=== PATIENT | female | born 1980 | race American Indian/Alaskan Native ===

== ENCOUNTER 2016-12-25 11:24 | Emergency (ER) | payer OTHER ==
[2016-12-25 11:43] VITALS: BP 129/86
[2016-12-25] MEDS ORDERED: MOTRIN PO ONE (13:18)
--- NOTE | 2016-12-25 13:23 | Emergency Department Report ---
HPI - General Chief Complaint: Extremity Injury, Lower - HPI HPI: 36-year-old female comes in with complaint of right foot swelling after wearing new shoes while on vacation in [place] for 4 days. Patient recently returned from [place] states her right foot remained swollen. She reports that the swelling started towards the end of her trip. Does admit that the swelling is decreased in the morning. She does report she had a blister on the right great toe heel aspect. Does have a history of hammertoe correction to the same foot back in 07/28/2016. Patient admits that she has not taken any pain medicine for the discomfort. She does have a history of diabetes and hypertension. She reports that she is on metformin 500 mg by mouth daily as well as lisinopril 10 mg by mouth daily. ED Past Medical Hx - Past Medical History Previous Medical History?: Yes Hx Diabetes: Yes Additional medical history: right foot pain - Surgical History Past Surgical History?: Yes Additional Surgical History: Right foot hammer toe correction - Social History Smoking Status: Never Smoker Substance Use Type: Prescribed - Medications Home Medications: Home Medications Medication Instructions Recorded Confirmed Last Taken Type Clindamycin [Clindamycin CAP] 300 mg PO Q8H #30 cap 02/16/16 Unknown Rx Ibuprofen [Motrin 800 MG tab] 800 mg PO ONCE #90 tablet 12/25/16 Unknown Rx ED Review of Systems ROS: Stated complaint: SWOLLEN RT FOOT Other details as noted in HPI Constitutional: denies: chills, fever Musculoskeletal: joint swelling, arthralgia Skin: change in color (chemotic blister right medial great toe) Physical Exam - Physical Exam Vital Signs: Vital Signs 12/25/16 11:38 Temperature 97.9 F Pulse Rate 81 Respiratory 20 Rate Blood Pressure 129/86 O2 Sat by Pulse 99 Oximetry Physical Exam: GENERAL: Alert and oriented x3, no apparent distress, Normal Gait, atraumatic. HEAD: Head is normocephalic and a-traumatic. EXTREMITIES/MUSCULOSKELETAL: No cyanosis, clubbing, rash, lesions or edema. Full ROM bilaterally. UE/LE Pulses 2+ bilaterally. LE and UE 5+ strength bilaterally/ right foot swelling on the dorsum aspect, ecchymotic blister to the right medial great toe. Right foot feels warm non-tender to palpate. NEUROLOGIC: No focal Deficit, Cranial nerves II through XII are grossly intact. No loss of sensation, No facial droop, PSYCHIATRIC: Mood is congruent with affect, denies suicidal or homicidal ideations. SKIN: Warm and dry, No lesions, ED Course Vital Signs 12/25/16 11:38 Temperature 97.9 F Pulse Rate 81 Respiratory 20 Rate Blood Pressure 129/86 O2 Sat by Pulse 99 Oximetry ED Medical Decision Making - Radiology Data Radiology results: report reviewed, image reviewed Fluoro Time In Minutes: AP and lateral right foot: There is diffuse soft tissue swelling. No ulceration noted. There appears to be a fracture through the mid navicular bone with inferior displacement of a portion of the bone and fragmentation of the superior portion. This represents an interval change since her prior study in March 2016. The bony structures otherwise appear generally intact. Impression: Generalized swelling and navicular fracture. Transcribed By: RADHA Dictated By: LUIS EDUARDO COLEMAN MD Electronically Authenticated By: LUIS EDUARDO COLEMAN MD Signed Date/Time: 12/25/16 3046 - Medical Decision Making Patient's been evaluated by this provider in fast track. Discussed with patient that we will order an x-ray of her right foot to rule out any osteomyelitis since patient is diabetic and has an open blister. We will give patient ibuprofen for pain management. Discussed the patient she'll need to elevate her right foot. Patient verbalized understanding Critical care attestation.: If time is entered above; I have spent that time in minutes in the direct care of this critically ill patient, excluding procedure time. ED Disposition Clinical Impression: Navicular fracture of ankle Qualifiers: Encounter type: initial encounter Fracture type: closed Fracture alignment: displaced Laterality: right Qualified Code(s): S92.251A - Displaced fracture of navicular [scaphoid] of right foot, initial encounter for closed fracture Disposition: DISCHARGED TO HOME OR SELFCARE Is pt being admited?: No Does the pt Need Aspirin: No Condition: Stable Instructions: Foot Fracture in Adults (ED) Additional Instructions: Please wear your surgical or postop boot. Take pain medication as prescribed. It's very importantly to follow up with the orthopedic you have a foot fracture. Prescriptions: Ibuprofen [Motrin 800 MG tab] 800 mg PO ONCE #90 tablet Referrals: PRIMARY CAREMD [Primary Care Provider] - 3-5 Days ARNEL WRIGHT MD [Staff Physician] - 3-5 Days
--- NOTE | 2016-12-25 13:51 | XRay Report ---
AP and lateral right foot: There is diffuse soft tissue swelling. No ulceration noted. There appears to be a fracture through the mid navicular bone with inferior displacement of a portion of the bone and fragmentation of the superior portion. This represents an interval change since her prior study in March 2016. The bony structures otherwise appear generally intact. Impression: Generalized swelling and navicular fracture.
== END 2016-12-25 14:20 | disposition home or self-care (01) ==
LOC: ED 11:24
DX: S92.251A Displaced fracture of navicular [scaphoid] of right foot, initial encounter for closed fracture (principal); E11.9 Type 2 diabetes mellitus without complications; Z88.0 Allergy status to penicillin; X58.XXXA Exposure to other specified factors, initial encounter; Y93.89 Activity, other specified; Y92.89 Other specified places as the place of occurrence of the external cause; Y99.8 Other external cause status

== ENCOUNTER 2017-07-02 13:43 | Outpatient (CLI) | payer OTHER ==
--- NOTE | 2017-07-02 15:02 | XRay Report ---
Bilateral feet: History: Swelling. Findings: Right foot: There is multiple fragments identified at the talo navicular aspect of right foot suggestive of multiple fracture fragments of tarsal navicular. Arthritic changes are noted at the mid tarsal joints. The metatarsals and phalanges do not reveal any evidence of fracture. Arthritic changes are noted at the first tarsometatarsal joint and the interphalangeal joint second, third, fourth and fifth toes. Flattening of the plantar arch. Left foot: Arthritic changes noted of the dorsal aspect of the midtarsal foot. The metatarsals and the phalanges appears unremarkable with mild arthritic changes at the distal interphalangeal joint of second, third, fourth and fifth toes and the first tarsometatarsal joint. There is flattening of the plantar arch of the foot noted. Impression: Findings as detailed above.
== END 2017-07-02 13:44 | disposition home or self-care (01) ==
LOC: XRAY 13:43
PROVIDERS: ATTEND Podiatrist Public Medicine
DX: M19.071 Primary osteoarthritis, right ankle and foot (principal); M19.072 Primary osteoarthritis, left ankle and foot; R22.41 Localized swelling, mass and lump, right lower limb

== ENCOUNTER 2018-04-05 08:06 | Emergency (ER) | payer OTHER ==
[2018-04-05 08:10] VITALS: BP 137/69
--- NOTE | 2018-04-05 09:48 | Emergency Department Report ---
ED Female HPI - General Chief complaint: Urogenital-Female Stated complaint: POSS BLADDER INFECTION Time Seen by Provider: 04/05/18 08:30 Source: patient Mode of arrival: Ambulatory Limitations: No Limitations - History of Present Illness Initial comments: Patient 37-year-old [place] female who presents for dysuria frequency urgency for 3 days patient has history of diabetes denies fevers chills no nausea vomiting abdominal plain no vaginal discharge no vaginal bleeding . MD Complaint: dysuria Onset/Timin -: days(s) Severity: moderate Severity scale (0 -10): 3 Consistency: intermittent Worsens with: urination Are you Now?: No Last Menstrual Period: 03/24/18 EDC: 12/29/18 Associated Symptoms: dysuria - Related Data Sexually active: No Previous Rx's Medication Instructions Recorded Last Taken Type Clindamycin [Clindamycin CAP] 300 mg PO Q8H #30 cap 02/16/16 Unknown Rx Ibuprofen [Motrin 800 MG tab] 800 mg PO ONCE #90 tablet 12/25/16 Unknown Rx Nitrofurantoin Monohyd/M-Cryst 100 mg PO BID #20 capsule 04/05/18 Unknown Rx [Macrobid 100 mg Capsule] Phenazopyridine [Pyridium] 100 mg PO TID #6 tab 04/05/18 Unknown Rx Allergies Allergy/AdvReac Type Severity Reaction Status Date / Time Penicillins Allergy Unknown Verified 04/05/18 08:07 ED Review of Systems ROS: Stated complaint: POSS BLADDER INFECTION Other details as noted in HPI Constitutional: denies: chills, fever Eyes: denies: eye pain, eye discharge, vision change ENT: denies: ear pain, throat pain Respiratory: denies: cough, shortness of breath, wheezing Cardiovascular: denies: chest pain, palpitations Endocrine: no symptoms reported Gastrointestinal: denies: abdominal pain, nausea, diarrhea Genitourinary: urgency, dysuria, frequency, hematuria. denies: discharge Musculoskeletal: denies: back pain, joint swelling, arthralgia Skin: denies: rash, lesions Neurological: denies: headache, weakness, paresthesias Psychiatric: denies: anxiety, depression Hematological/Lymphatic: denies: easy bleeding, easy bruising ED Past Medical Hx - Past Medical History Hx Diabetes: Yes Additional medical history: right foot pain - Surgical History Additional Surgical History: Right foot hammer toe correction - Social History Smoking Status: Never Smoker Substance Use Type: None - Medications Home Medications: Home Medications Medication Instructions Recorded Confirmed Last Taken Type Clindamycin [Clindamycin CAP] 300 mg PO Q8H #30 cap 02/16/16 Unknown Rx Ibuprofen [Motrin 800 MG tab] 800 mg PO ONCE #90 tablet 12/25/16 Unknown Rx Nitrofurantoin Monohyd/M-Cryst 100 mg PO BID #20 capsule 04/05/18 Unknown Rx [Macrobid 100 mg Capsule] Phenazopyridine [Pyridium] 100 mg PO TID #6 tab 04/05/18 Unknown Rx ED Physical Exam - General Limitations: No Limitations General appearance: alert, in no apparent distress - Head Head exam: Present: atraumatic, normocephalic - Eye Eye exam: Present: normal appearance - ENT ENT exam: Present: mucous membranes moist - Neck Neck exam: Present: normal inspection - Respiratory Respiratory exam: Present: normal lung sounds bilaterally. Absent: respiratory distress - Cardiovascular Cardiovascular Exam: Present: regular rate, normal rhythm. Absent: systolic murmur, diastolic murmur, rubs, gallop - GI/Abdominal GI/Abdominal exam: Present: soft, normal bowel sounds - Rectal Rectal exam: Present: deferred - Extremities Exam Extremities exam: Present: normal inspection - Back Exam Back exam: Present: normal inspection - Neurological Exam Neurological exam: Present: alert, oriented X3 - Psychiatric Psychiatric exam: Present: normal affect, normal mood - Skin Skin exam: Present: warm, dry, intact, normal color. Absent: rash ED Course Vital Signs 04/05/18 08:07 Temperature 98.3 F Pulse Rate 91 H Respiratory 18 Rate Blood Pressure 137/69 O2 Sat by Pulse 98 Oximetry ED Medical Decision Making - Lab Data Laboratory Tests 04/05/18 09:34 Urine Color Yellow Urine Turbidity Clear Urine pH 6.0 [address] [place] 1.010 Urine Protein 30 mg/dl Urine Glucose (UA) Neg Urine Ketones Neg Urine Blood Mod Urine Nitrite Pos Urine Bilirubin Neg Urine Urobilinogen < 2.0 Ur Leukocyte Esterase Lg Urine WBC (Auto) > 182.0 H Urine RBC (Auto) 48.0 Urine Bacteria (Auto) 1+ Urine WBC Clumps 2+ Ur Transition Epith Cell 2 Urine Mucus Few Urine HCG, Qual Negative - Medical Decision Making Urine positive for UTI patient states Macrobid generally worse we'll try Macrobid 100 by mouth twice a day for 10 patient will follow with PCP in 2-3 days return to ED if symptoms worsen patient, and on 3 ambulatory with no acute distress at this time no fever no chills no abdominal pain no nausea vomiting tolerating by mouth intake will to home in stable condtion at this time. Critical care attestation.: If time is entered above; I have spent that time in minutes in the direct care of this critically ill patient, excluding procedure time. ED Disposition Clinical Impression: UTI (urinary tract infection) Qualifiers: Urinary tract infection type: acute cystitis Hematuria presence: without hematuria Qualified Code(s): N30.00 - Acute cystitis without hematuria Disposition: - TO HOME OR SELFCARE Is pt being admited?: No Does the pt Need Aspirin: No Condition: Good Instructions: Urinary Tract Infection in Women (ED) Prescriptions: Nitrofurantoin Monohyd/M-Cryst [Macrobid 100 mg Capsule] 100 mg PO BID #20 capsule Phenazopyridine [Pyridium] 100 mg PO TID #6 tab Referrals: PRIMARY CARE, [Primary Care Provider] - 3-5 Days Forms: Work/School Release Form(ED) Time of Disposition: 10:30
[2018-04-05 09:52] LABS: Bacteria,Urine 1+ /HPF (Negative); Bilirubin,Urine NEG (Negative); Blood,Urine MOD (Negative); Color,Urine Yellow (Yellow); Mucus,Urine FEW /HPF; Urobilinogen,Urine < 2.0 mg/dL (<2.0)
[2018-04-05 09:53] LABS: WBC,Urine > 182.0 /HPF (0.0-6.0)
[2018-04-05 09:54] LABS: HCG Qualitative,Urine Negative (Negative)
== END 2018-04-05 10:35 | disposition home or self-care (01) ==
LOC: ED 08:06
DX: N30.00 Acute cystitis without hematuria (principal); E11.9 Type 2 diabetes mellitus without complications
CPT/HCPCS: 81001; 81025; 99283